=== PATIENT | female | born 1975 | race African-American/Black ===

== ENCOUNTER → 2017-06-05 10:07 | Outpatient (CLI) | payer MEDICAID ==
[2017-06-05 10:38] LABS: BASOPHILS 0.1 % (0-2); EOSINOPHILS 1.2 % (0-7); HEMATOCRIT 28.6 % (36.0-48.0); IMMATURE GRANULOCYTES 0.4 % (0-5); LYMPHOCYTES 20.6 % (15-50); MCV 67.3 fL (80.0-100.0); MEAN PLATELET VOLUME 9.2 fL (7.4-10.4); MONOCYTES 8.5 % (2-11); NEUTROPHILS 69.2 % (40-80); PLATELET COUNT 389 10x3/uL (130-400); RBC 4.25 10x6/uL (4.00-5.40); RDW 26.7 % (11.5-14.5); WBC 13.9 10x3/uL (4.8-10.8)
[2017-06-05 10:48] LABS: MCH 18.8 pg (26.0-34.0)
== END | disposition home or self-care (01) ==
LOC: D.LAB 10:07
PROVIDERS: Internal Medicine Gastroenterology
DX: D64.9 Anemia, unspecified (principal); R10.13 Epigastric pain; R12 Heartburn; R63.4 Abnormal weight loss; R11.0 Nausea; R13.10 Dysphagia, unspecified